=== PATIENT | male | born 1990 | race Caucasian/White ===

== ENCOUNTER 2017-08-15 20:25 | Emergency (ER) | payer BC, OTHER ==
[2017-08-16] MEDS: LIDOCAINE 1% (MDV) 10 ML INJ INJ (00:22)
== END 2017-08-16 01:59 | disposition home or self-care (01) ==
LOC: FTE 20:25
DX: S91.125A Laceration with foreign body of left lesser toe(s) without damage to nail, initial encounter (principal); W26.8XXA Contact with other sharp object(s), not elsewhere classified, initial encounter; Y92.9 Unspecified place or not applicable
CPT/HCPCS: 12001; 99283-25